=== PATIENT | female | born 1970 | race Caucasian/White ===

== ENCOUNTER 2017-08-16 10:49 | Day surgery (SDC) | payer BC ==
[2017-08-16] MEDS ORDERED: D5 LR 1000 ML 1,000 ML IV ONE (11:10)
[2017-08-16] MEDS ORDERED: DIPRIVAN VIAL 20 ML ONE ×2 (12:21→12:26)
[2017-08-16 15:18] VITALS: BP 127/74
== END 2017-08-16 12:55 | disposition home or self-care (01) ==
LOC: SURG1 10:49
PROVIDERS: ATTEND Internal Medicine Gastroenterology
PROC: 0DB68ZX Excision of Stomach, Via Natural or Artificial Opening Endoscopic, Diagnostic (ICD-10-PCS; principal; 2017-08-16 13:30)
PROC: 0DJ08ZZ Inspection of Upper Intestinal Tract, Via Natural or Artificial Opening Endoscopic (ICD-10-PCS; principal; 2017-08-16 13:30)
PROC: 0DB88ZX Excision of Small Intestine, Via Natural or Artificial Opening Endoscopic, Diagnostic (ICD-10-PCS; principal; 2017-08-16 13:30)
DX: D50.8 Other iron deficiency anemias (principal); R10.13 Epigastric pain; K20.8 Other esophagitis; K29.60 Other gastritis without bleeding
CPT/HCPCS: A4217; J3490; J7120

== ENCOUNTER 2017-08-30 10:16 | Day surgery (SDC) | payer BC ==
[2017-08-30] MEDS ORDERED: D5 LR 1000 ML 1,000 ML IV ONE (10:23)
[2017-08-30] MEDS ORDERED: DIPRIVAN VIAL 20 ML ONE (11:22)
[2017-08-30] MEDS ORDERED: DIPRIVAN VIAL 10 ML ONE (11:39)
[2017-08-30 12:20] VITALS: BP 112/67
== END 2017-08-30 12:20 | disposition home or self-care (01) ==
LOC: SURG1 10:16
PROVIDERS: ATTEND Internal Medicine Gastroenterology
PROC: 0DBK8ZX Excision of Ascending Colon, Via Natural or Artificial Opening Endoscopic, Diagnostic (ICD-10-PCS; principal; 2017-08-30 11:30)
PROC: 0DBP8ZX Excision of Rectum, Via Natural or Artificial Opening Endoscopic, Diagnostic (ICD-10-PCS; principal; 2017-08-30 11:30)
PROC: 0DJD8ZZ Inspection of Lower Intestinal Tract, Via Natural or Artificial Opening Endoscopic (ICD-10-PCS; principal; 2017-08-30 11:30)
DX: D50.8 Other iron deficiency anemias (principal); R63.4 Abnormal weight loss; K63.5 Polyp of colon; K64.0 First degree hemorrhoids; K57.30 Diverticulosis of large intestine without perforation or abscess without bleeding; D12.4 Benign neoplasm of descending colon
CPT/HCPCS: A4217; J3490; J7120